=== PATIENT | female | born 1965 | race Caucasian/White ===

== ENCOUNTER 2017-03-22 05:52 | Day surgery (SDC) | payer OTHER ==
[2017-03-22] MEDS ORDERED: Lactated Ringers 1,000 ML IV SCH (06:00)
[2017-03-22] MEDS ORDERED: Lactated Ringers 1,000 ML IV ONE (06:06)
[2017-03-22] MEDS ORDERED: DIPRIVAN 200 MG/20 ML IV ONE (08:00)
[2017-03-22] MEDS ORDERED: Ketamine HCl 50 MG/ML IV ONE (08:00)
[2017-03-22 08:20] VITALS: PULSE 63; O2SAT 95
[2017-03-22 08:31] VITALS: BP 180/90
--- NOTE | 2017-03-22 12:56 | OP ---
SURGERY DATE: 03/22/17 SURGERY TIME: 723 PREOPERATIVE DIAGNOSIS: 1. DYSPHAGIA. POSTOPERATIVE DIAGNOSIS: 1. MODERATE GASTRITIS. 2. DUODENITIS. PROCEDURE: 1. Esophagogastroduodenoscopy with biopsy. SURGEON: Dr. Yang. ANESTHESIA: MAC, medication given by the Anesthesia Department. BRIEF HISTORY: The patient is a 51 y/o WF presenting now for complaints of fullness upon eating, but also dysphagia with liquids and solids both. Of note, the patient takes 500 mg of naproxen bid for hip arthritis that she has been taking for about a year. She has been taking proton pump inhibitors and H2 blockers without improvement. The patient was felt to need to have endoscopic evaluation. She was appraised of the risks of the procedure including the risk of perforation, phlebitis, untoward reaction to medication, bleeding, and missed lesions. The patient verbalized her understanding and desired to have the procedure performed. DESCRIPTION OF PROCEDURE: The patient was given the medications by the Anesthesia Department. She had continuous pulse oximetry, ECG monitoring, intermittent BP monitoring, and end tidal CO2 monitoring during the examination. She was placed in the left lateral decubitus position. A bite block was placed and the flexible Olympus gastroscope was used to intubate the oropharynx. A view of the larynx was obtained and was normal. The scope was easily introduced in the esophagus which appeared to be normal throughout its length. The stomach was entered where normal gastric rugal folds were seen. There was noted to be however moderate gastritis throughout the stomach with the appearance of nonsteroidal anti-inflammatory drug gastropathy. The scope was passed along the greater curvature of the stomach to the antrum. The pylorus was encountered and intubated. The duodenum was inspected and found also to have some duodenitis. The scope was withdrawn towards the stomach. A retroflex view was obtained of the lesser curvature, fundus, and cardia regions of the stomach and these appeared to be normal. The scope was then redirected towards the gastric antrum and biopsies were obtained to rule out the presence of Helicobacter pylori type organisms. The scope was then removed from the patient who tolerated the procedure well and was sent back to outpatient recovery in good condition.
== END 2017-03-22 08:30 | disposition home or self-care (01) ==
LOC: SDC 05:52
PROVIDERS: ATTEND Family Medicine
PROC: 0DB78ZX Excision of Stomach, Pylorus, Via Natural or Artificial Opening Endoscopic, Diagnostic (ICD-10-PCS; principal; 2017-03-22)
DX: K29.70 Gastritis, unspecified, without bleeding (principal); K29.80 Duodenitis without bleeding
CPT/HCPCS: 00740; 36415; 88305; J2704

== ENCOUNTER 2017-05-13 12:44 | Emergency (ER) | payer OTHER ==
[2017-05-13] MEDS ORDERED: Sodium Chloride 0.9% 1000 ML 1,000 ML IV STA (13:08)
[2017-05-13] MEDS ORDERED: Vistaril 50 MG/ML IM ONE ×2 (13:10→13:13)
[2017-05-13] MEDS ORDERED: Sodium Chloride 0.9% 1000 ML 1,000 ML ONE (13:13)
[2017-05-13 13:32] LABS: BASOPHIL % 0.1 % (0.0-0.4); Granulocytes % 60.7 % (36.0-66.0); Lymphocytes % 27.6 % (24.0-44.0); Mean Corpuscular Hemoglobin 32.2 pg (26-32); Mean Platelet Volume 10.9 fl (6-9.5); Monocytes % 8.6 % (0.0-12.0); Platelet Count 196 K/mm3 (150-450); Red Blood Count 4.63 M/mm3 (4.1-5.4); Red Cell Distribution Width 12.5 % (11.5-14.0); White Blood Count 8.4 K/mm3 (4.0-10.5)
[2017-05-13 13:48] LABS: ALBUMIN 3.7 g/dL (3.4-5.0); ALKALINE PHOSPHATASE 109 U/L (46-116); ANION GAP 13.7 MEQ/L (5-15); BLOOD UREA NITROGEN 6 mg/dL (9-20); CHLORIDE 105 mEq/L (98-107); Carbon Dioxide 25.2 mEq/L (21-32); Glucose 145 MG/DL (70-110); Potassium 3.6 mEq/L (3.5-5.1); SGOT/AST 15 U/L (15-37); SGPT/ALT 18 U/L (12-78); SODIUM 140 mEq/L (136-145); Total Protein 7.5 gm/dL (6.4-8.2)
[2017-05-13 13:49] LABS: ADD URINE CULTURE? NO (NO); Bilirubin NEGATIVE (NEGATIVE); Blood NEGATIVE Ery/ul (0-5); COMPLETE URINE MICROSCOPIC? NO; Collection Type VOID; Glucose NEGATIVE (NEGATIVE); Leukocyte Esterase NEGATIVE (NEGATIVE)
[2017-05-13] MEDS ORDERED: NORCO 5/325 MG PO ONE (13:52)
[2017-05-13] MEDS ORDERED: NORCO 5/325 MG ONE (13:55)
--- NOTE | 2017-05-13 14:03 | XRAY ---
Indication: Vomiting. Comparison: KUB March 18, 2013. 2 views of the abdomen again nonacute and nonobstructed with previous cholecystectomy. Solid organs unremarkable. Osseous structures intact again with lower lumbar degenerative changes. Single PA chest demonstrates normal heart, lungs, and bony thorax. Impression: Negative abdomen. Normal 1 view chest.
--- NOTE | 2017-05-13 14:06 | ERPHSYRPT ---
- History of Present Illness Time Seen by Provider: 05/13/17 13:02 Source: patient, family Patient Subjective Stated Complaint: Pt states "I am having problems getting my blood pressure down. I have not been feeling well since yesterday." Triage Nursing Assessment: Pt alert and oriented X 3, skin pwd pt ambulates without difficulty, able to speak in full sentences. Physician History: CC: high blood pressure Hx: 51 y/o patient of CHRISTINE Herring. She has head numbness, blurry vision, electrical shock sensation in her lips, dizzy feeling- wooziness, and nausea, vomiting. Started last night. No headache. No chest pain. No abd pain. No diarrhea. ALL: Sulfa, tramadol Social: SMoker, alcohol 6-8beers per day 2-3 days a week Severity: moderate Allergies/Adverse Reactions: Sulfa (Sulfonamide Antibiotics) Allergy (Severe, Verified 05/13/17 12:56) tongue swells itch and rash tramadol Allergy (Mild, Verified 05/13/17 12:56) Hives Home Medications: Alprazolam 1 mg PO DAILY 03/17/17 [History] Estradiol [Estrace] 0.5 mg PO DAILY 03/17/17 [History] Metoprolol [place]/Hydrochlorothiaz [Metoprolol ER-Hctz 100-12.5 mg] 1 each PO DAILY 03/17/17 [History] Valsartan/Hydrochlorothiazide [Valsartan-Hctz 80-12.5 mg Tab] 1 each PO DAILY [History] Venlafaxine HCl ER 75 mg [Effexor XR 75 MG] 75 mg PO HS 03/17/17 [History] Omeprazole Magnesium [Prilosec Otc] 40 mg PO DAILY 03/22/17 [History] Ranitidine HCl 150 mg PO DAILY 03/22/17 [History] Hx Tetanus, Diphtheria Vaccination/Date Given: Yes Hx Influenza Vaccination/Date Given: Yes Hx Pneumococcal Vaccination/Date Given: No Immunizations Up to Date: Yes - Review of Systems Constitutional: Malaise, No Fever, No Chills Eyes: No Symptoms Ears, Nose, & Throat: No Symptoms Respiratory: No Cough, No Dyspnea Cardiac: No Chest Pain Abdominal/Gastrointestinal: Nausea, Vomiting, No Abdominal Pain, No Diarrhea Skin: No Rash Neurological: Dizziness, Headache, Parasthesia, No Focal Weakness All Other Systems: Reviewed and Negative - Past Medical History Pertinent Past Medical History: Yes Neurological History: No Pertinent History ENT History: No Pertinent History Cardiac History: Hypertension Respiratory History: No Pertinent History Endocrine Medical History: No Pertinent History Musculoskeletal History: No Pertinent History GI Medical History: Ulcer, Irritable Bowel, GERD History: No Pertinent History Psycho-Social History: Anxiety Female Reproductive Disorders: Menstrual Problems, Endometriosis Other Medical History: ANXIETY - Past Surgical History Past Surgical History: Yes Neuro Surgical History: No Pertinent History Cardiac: No Pertinent History Respiratory: No Pertinent History Gastrointestinal: Cholecystectomy Genitourinary: No Pertinent History Musculoskeletal: Other Female Surgical History: Hysterectomy, Tubal Ligation Other Surgical History: several colonoscopy r/t IBS, Right leg fx with casting , EGD "long time ago" dx was ulcer - Social History Smoking Status: Current every day smoker How long have you smoked: years Exposure to second hand smoke: Yes Drug Use: none Patient Lives Alone: No - Female History Hx Last Menstrual Period: histerectomy - Nursing Vital Signs Nursing Vital Signs: Initial Vital Signs Temperature 97.9 F 05/13/17 12:51 Pulse Rate 78 05/13/17 12:51 Respiratory Rate 18 05/13/17 12:51 Blood Pressure 189/112 05/13/17 12:51 O2 Sat by Pulse Oximetry 99 05/13/17 12:51 Pain Scale Pain Intensity 7 - Physical Exam General Appearance: alert Eye Exam: PERRL/EOMI Ears, Nose, Throat Exam: normal ENT inspection, moist mucous membranes Neck Exam: normal inspection, non-tender, supple Respiratory Exam: normal breath sounds, lungs clear Cardiovascular Exam: regular rate/rhythm Gastrointestinal/Abdomen Exam: soft, No tenderness, No distention, No guarding Extremity Exam: normal inspection, normal range of motion Neurologic Exam: alert, oriented x 3, cooperative, sensation nml, No motor deficits Skin Exam: warm, dry, No rash SpO2 Interpretation: normal SpO2: 99 Oxygen Delivery: Room Air - Course Nursing assessment & vital signs reviewed: Yes EKG Interpreted by Me: RATE (73), Sinus Rhythm, NORMAL AXIS, NORMAL INTERVALS ( QTc 425), NORMAL ST-T, Other (mild LVH) Ordered Tests: Active Orders 24 hr Category Date Time Status Clean Catch Urine Specimen STAT Care 05/13/17 13:08 Active EKG-ER Only STAT Care 05/13/17 13:08 Active IV Insertion STAT Care 05/13/17 13:08 Active OBSTR/ACUTE ABDOMEN SERIES Stat Exams 05/13/17 13:09 Completed CBC W DIFF Stat Lab 05/13/17 13:20 Completed CMP Stat Lab 05/13/17 13:20 Completed UA W/RFX UR CULTURE Stat Lab 05/13/17 13:20 Completed Urine Triage Profile Stat Lab 05/13/17 13:20 Completed VENOUS BLOOD GAS Urgent Lab 05/13/17 14:19 Completed Medication Summary Discontinued Medications Generic Name Dose Route Start Last Admin Trade Name Jacey PRN Reason Stop Dose Admin Hydrocodone Bitart/Acetaminophen 1 tab 05/13/17 13:52 05/13/17 13:56 [place] 5/325 Mg PO 05/13/17 13:53 1 tab STAT ONE Administration Hydrocodone Bitart/Acetaminophen Confirm 05/13/17 13:55 [place] 5/325 Mg Administered 05/13/17 13:56 Dose 1 tab .ROUTE .STK-MED ONE Hydroxyzine HCl 50 mg 05/13/17 13:10 05/13/17 13:17 Vistaril 50 Mg/Ml IM 05/13/17 13:11 50 mg STAT ONE Administration Hydroxyzine HCl Confirm 05/13/17 13:13 Vistaril 50 Mg/Ml Administered 05/13/17 13:14 Dose 50 mg IM .STK-MED ONE Sodium Chloride 1,000 mls @ 999 mls/hr 05/13/17 13:08 05/13/17 13:17 Sodium Chloride 0.9% 1000 Ml IV 05/13/17 14:08 999 mls/hr .Q1H1M STA Administration Sodium Chloride Confirm 05/13/17 13:13 Sodium Chloride 0.9% 1000 Ml Administered 05/13/17 13:14 Dose 1,000 mls @ ud .ROUTE .STK-MED ONE Ketorolac Tromethamine 30 mg 05/13/17 14:18 05/13/17 14:25 Toradol 30 Mg Injection IV 05/13/17 14:19 30 mg STAT ONE Administration Ketorolac Tromethamine Confirm 05/13/17 14:21 Toradol 30 Mg Injection Administered 05/13/17 14:22 Dose 30 mg .ROUTE .STK-MED ONE Lorazepam 1 mg 05/13/17 14:19 05/13/17 14:25 Ativan 2 Mg/1 Ml Vial IV 05/13/17 14:20 1 mg STAT ONE Administration Lorazepam Confirm 05/13/17 14:22 Ativan 2 Mg/1 Ml Vial Administered 05/13/17 14:23 Dose 2 mg .ROUTE .STK-MED ONE Lab/Rad Data: Laboratory Result Diagrams 05/13/17 13:20 05/13/17 13:20 Laboratory Results 05/13/17 05/13/17 05/13/17 Range/Units 14:19 13:20 13:20 WBC (4.0-10.5) K/mm3 RBC (4.1-5.4) M/mm3 Hgb (12.0-16.0) gm/dl Hct (35-47) % MCV (78-100) fl MCH (26-32) pg MCHC (32-36) g/dl RDW (11.5-14.0) % Plt Count (150-450) K/mm3 MPV (6-9.5) fl Gran % (36.0-66.0) % Lymphocytes % (24.0-44.0) % Monocytes % (0.0-12.0) % Eosinophils % (0.00-5.0) % Basophils % (0.0-0.4) % Basophils # (0-0.4) VBG pH 7.43 H (7.32-7.42) VBG pCO2 at Pat Temp 39 L (42-55) mm/Hg VBG pO2 at Pat Temp 37 (25-40) mm/Hg VBG HCO3 25.9 (22-28) meq/L VBG O2 Sat (Ezio) 81.0 L (95-100) VBG Base Excess 1.6 (-2.0-2.0) VBG Hemoglobin 14.6 VBG Carboxyhemoglobin 6.3 (0.0-6.9) % T HGB POC Potassium 3.7 (3.5-5.1) Sodium (136-145) mEq/L Potassium (3.5-5.1) mEq/L Chloride (98-107) mEq/L Carbon Dioxide (21-32) mEq/L Anion Gap (5-15) MEQ/L BUN (9-20) mg/dL Creatinine (0.55-1.30) mg/dl Estimated GFR ML/MIN Glucose (70-110) MG/DL Calcium (8.5-10.1) mg/dL Total Bilirubin (0.2-1.0) mg/dL AST (15-37) U/L ALT (12-78) U/L Alkaline Phosphatase (46-116) U/L Serum Total Protein (6.4-8.2) gm/dL Albumin (3.4-5.0) g/dL Ur Collection Type VOID Urine Color YELLOW (YELLOW) Urine Appearance CLEAR (CLEAR) Urine pH 7.0 (5-6) Ur Specific [place] 1.005 (1.005-1.025) Urine Protein NEGATIVE (Negative) Urine Ketones NEGATIVE (NEGATIVE) Urine Blood NEGATIVE (0-5) Rhett/ul Urine Nitrite NEGATIVE (NEGATIVE) Urine Bilirubin NEGATIVE (NEGATIVE) Urine Urobilinogen NORMAL (0-1) mg/dL Ur Leukocyte Esterase NEGATIVE (NEGATIVE) Urine Glucose NEGATIVE (NEGATIVE) mg/dL Urine Opiates Level NEG. (NEGATIVE) Ur Methadone NEG. (NEGATIVE) Urine Barbiturates NEG. (NEGATIVE) Ur Phencyclidine (PCP) NEG. (NEGATIVE) Urine Amphetamine NEG. (NEGATIVE) U Benzodiazepine Level NEG. (NEGATIVE) Urine Cocaine NEG. (NEGATIVE) Urine Marijuana (THC) NEG. (NEGATIVE) Specimen Received 05/13/17 1335 05/13/17 05/13/17 Range/Units 13:20 13:20 WBC 8.4 (4.0-10.5) K/mm3 RBC 4.63 (4.1-5.4) M/mm3 Hgb 14.9 (12.0-16.0) gm/dl Hct 44.0 (35-47) % MCV 95.0 (78-100) fl MCH 32.2 H (26-32) pg MCHC 33.9 (32-36) g/dl RDW 12.5 (11.5-14.0) % Plt Count 196 (150-450) K/mm3 MPV 10.9 H (6-9.5) fl Gran % 60.7 (36.0-66.0) % Lymphocytes % 27.6 (24.0-44.0) % Monocytes % 8.6 (0.0-12.0) % Eosinophils % 3.0 (0.00-5.0) % Basophils % 0.1 (0.0-0.4) % Basophils # 0.01 (0-0.4) VBG pH (7.32-7.42) VBG pCO2 at Pat Temp (42-55) mm/Hg VBG pO2 at Pat Temp (25-40) mm/Hg VBG HCO3 (22-28) meq/L VBG O2 Sat (Ezio) (95-100) VBG Base Excess (-2.0-2.0) VBG Hemoglobin VBG Carboxyhemoglobin (0.0-6.9) % T HGB POC Potassium (3.5-5.1) Sodium 140 (136-145) mEq/L Potassium 3.6 (3.5-5.1) mEq/L Chloride 105 (98-107) mEq/L Carbon Dioxide 25.2 (21-32) mEq/L Anion Gap 13.7 (5-15) MEQ/L BUN 6 L (9-20) mg/dL Creatinine 0.80 (0.55-1.30) mg/dl Estimated GFR > 60 ML/MIN Glucose 145 H (70-110) MG/DL Calcium 9.3 (8.5-10.1) mg/dL Total Bilirubin 0.40 (0.2-1.0) mg/dL AST 15 (15-37) U/L ALT 18 (12-78) U/L Alkaline Phosphatase 109 (46-116) U/L Serum Total Protein 7.5 (6.4-8.2) gm/dL Albumin 3.7 (3.4-5.0) g/dL Ur Collection Type Urine Color (YELLOW) Urine Appearance (CLEAR) Urine pH (5-6) Ur Specific [place] (1.005-1.025) Urine Protein (Negative) Urine Ketones (NEGATIVE) Urine Blood (0-5) Rhett/ul Urine Nitrite (NEGATIVE) Urine Bilirubin (NEGATIVE) Urine Urobilinogen (0-1) mg/dL Ur Leukocyte Esterase (NEGATIVE) Urine Glucose (NEGATIVE) mg/dL Urine Opiates Level (NEGATIVE) Ur Methadone (NEGATIVE) Urine Barbiturates (NEGATIVE) Ur Phencyclidine (PCP) (NEGATIVE) Urine Amphetamine (NEGATIVE) U Benzodiazepine Level (NEGATIVE) Urine Cocaine (NEGATIVE) Urine Marijuana (THC) (NEGATIVE) Specimen Received - Progress Progress Note: 05/13/17 14:52 She reports a lot of stress. She has had these spells with tingling in bilateral toe and hands. Some pressure in back of head. Feels woozy without vertigo. Labs reviewed and reassuring. Discussed head CT which does not seem indicated. She feels cold but has normal temp. Ativan and toradol given. 05/13/17 15:16 Not orthostatic. She is more hypertensive when up. She ambulated well. She states she feels a wooshing sound in her eyes. Counseled pt/family regarding: lab results, diagnosis, need for follow-up - Departure Time of Disposition: 15:17 Departure Disposition: Home Clinical Impression: Anxiety, Dizziness, High blood pressure Condition: Stable Critical Care Time: No Referrals: TARYN HERRING [Primary Care Provider] - Instructions: High Blood Pressure, Anxiety -- Adult, Numbness/tingling Additional Instructions: Rest Take your normal medications as already prescribed No driving and stay with family today Return for problems or concerns See Dr Yang tomorrow at 10:30 (for [employer] [place] office) Prescriptions: Meclizine HCl 25 mg [Antivert 25 mg] 1 tab PO Q6H PRN PRN #15 tablet PRN Reason: dizziness
[2017-05-13] MEDS ORDERED: TORAdol 30 mg Injection IV ONE (14:18)
[2017-05-13] MEDS ORDERED: Ativan 2 MG/1 ML VIAL IV ONE (14:19)
[2017-05-13] MEDS ORDERED: TORAdol 30 mg Injection ONE (14:21)
[2017-05-13] MEDS ORDERED: Ativan 2 MG/1 ML VIAL ONE (14:22)
[2017-05-13 14:38] LABS: VBG BASE EXCESS 1.6 (-2.0-2.0); VBG CARBOXYHEMOGLOBIN 6.3 % T HGB (0.0-6.9); VBG HCO3- 25.9 meq/L (22-28); VBG HEMOGLOBIN 14.6; VBG POTASSIUM 3.7 (3.5-5.1); VBG pH 7.43 (7.32-7.42)
[2017-05-13 14:59] VITALS: BP 155/92; PULSE 68
[2017-05-13 15:18] VITALS: O2SAT 99
== END 2017-05-13 15:29 | disposition home or self-care (01) ==
LOC: ED 12:44
DX: F41.9 Anxiety disorder, unspecified (principal); R42 Dizziness and giddiness; I10 Essential (primary) hypertension; R11.2 Nausea with vomiting, unspecified; R51 Headache
CPT/HCPCS: 36000; 36415; 74022; 80053; 80307; 81002; 82805; 85025; 93005; 96360; 96372; 96374; 99284; J1885; J2060; J3410; A9270-GY